=== PATIENT | female | born 1960 | race Hispanic/Latino ===

== ENCOUNTER → 2020-08-03 | Outpatient (CLI) | payer OTHER ==
[~2020-08-03] MED LIST: IOPAMIDOL 370 MG/ML 200 ML INFUS..BTL INJ ONE; SODIUM CHLORIDE 0.9% 250ML 250 ML ONE
[2020-08-03 14:35] LABS: BLOOD UREA NITROGEN 12 mg/dL (7-26); BUN/CREATININE RATIO 15 (6-25); CREATININE, SERUM 0.82 mg/dL (0.57-1.11); EST GLOMERULAR FILTRATION RATE > 60 ML/MIN (60-)
--- NOTE | 2020-08-03 16:00 | Diagnostic Imaging Report ---
CT of the abdomen and pelvis with and without contrast TECHNIQUE: CT of the abdomen and pelvis WITHOUT and WITH intravenous contrast and WITHOUT oral contrast. Dose modulation, iterative reconstruction, and/or weight-based adjustment of the mA/kV was utilized to reduce the radiation dose to as low as reasonably achievable. IV CONTRAST: 100 mL of Isovue-370 ORAL CONTRAST: None RADIATION DOSE: Total DLP: 1248 mGy*cm COMPLICATIONS: None INDICATION: ^[id number] ^1500 ^MICROSCOPIC HEMATURIA. COMPARISON: None. FINDINGS: LOWER THORAX: Dependent subsegmental atelectasis and scarring are noted. HEPATOBILIARY: No focal suspicious hepatic lesions. Hypodense cyst is identified in the posterior right hepatic lobe measuring up to 2.8 cm. Gallbladder is unremarkable. No biliary ductal dilatation. SPLEEN: No splenomegaly. PANCREAS: No focal masses or ductal dilatation. ADRENALS: No adrenal nodules. KIDNEYS/URETERS: Severe right hydronephrosis is noted along with proximal ureteral dilatation. There is focal transition from a dilated right ureter to nondilated right ureter approximately. Remainder of the right ureters not dilated. Negative for left hydronephrosis. No suspicious enhancing mass. No surrounding inflammatory changes are noted. Negative for nephrolithiasis. PELVIC ORGANS/BLADDER: Urinary bladder is unremarkable. Uterus contains a fibroid posteriorly. Ovaries are unremarkable by CT technique. PERITONEUM/RETROPERITONEUM: No free air or fluid. LYMPH NODES: No lymphadenopathy. VESSELS: Negative for abdominal aortic aneurysm. GI TRACT: Bowel loops are nondilated. No surrounding inflammatory changes are identified. Normal appendix is noted. BONES AND SOFT TISSUES: No acute osseous abnormality. No suspicious lytic or blastic lesion is identified. Moderate facet arthropathy of the lower lumbar spine is noted. Grade 1 anterolisthesis of L5 on S1 is noted. Negative for pars defect. Soft tissues are unremarkable. IMPRESSION: Severe right hydronephrosis and pelvis dilatation with abrupt transition at the level of the proximal ureter possibly the ureteropelvic junction. No obstructing calculus or mass is identified. Signed by: Willy King MD on 08/03/2020 3:57 PM
== END ==
LOC: CT 13:46
PROVIDERS: ATTEND Urology
DX: R31.21 Asymptomatic microscopic hematuria (principal)
CPT/HCPCS: 36415; 74178; 82565; 84520; J7050; Q9967

== ENCOUNTER → 2020-08-23 | Outpatient (CLI) | payer OTHER ==
[~2020-08-23] MED LIST changes: +FUROSEMIDE INJ 10 MG/ML 4 ML VIAL ONE; -IOPAMIDOL 370 MG/ML 200 ML INFUS..BTL INJ ONE; -SODIUM CHLORIDE 0.9% 250ML 250 ML ONE
--- NOTE | 2020-08-24 15:53 | Diagnostic Imaging Report ---
Renal Scan with Lasix Washout Reason for exam: Hydronephrosis, unspecified Technique: Following intravenous administration of 11 mCi of Tc-99m MAG3, dynamic images of the kidneys in the posterior projection were obtained through 40 minutes. Lasix 40 mg was administered intravenously at 10 minutes post injection of the tracer. Report: Left kidney: Perfusion of the left kidney is prompt. The kidney has a reniform shape. Extraction of tracer from the blood pool by the renal parenchyma is normal. Clearance of tracer from the renal parenchyma is prompt. The pelvicalyceal system is not dilated. Physiologic pooling of tracer is seen within the pelvicalyceal system. Drainage of tracer from the pelvicalyceal system is prompt and adequate prior to administration of Lasix. No significant stasis of tracer is seen within the left ureter. Right kidney: Perfusion to the right kidney is prompt. The right kidney has a slender, mildly elongated reniform shape. 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 Extraction of tracer by the renal parenchyma is mildly decreased. Clearance of tracer from the renal parenchyma is prompt. The pelvicalyceal system is mildly dilated, most prominently the renal pelvis. Increased pooling of tracer is seen within renal pelvis. Some net drainage of tracer from the pelvicalyceal system is seen prior to administration of Lasix. Washout of tracer from the pelvicalyceal system following administration of Lasix is prolonged with a T-1/2 of 35 minutes (normal less than 15 minutes). No significant stasis of tracer is seen within the right ureter. Differential renal function: The left kidney contributes 43% of total renal function and the right kidney contributes 57% (normal 43-57%). Impression: 1. Cannot exclude mild medical renal disease in the left kidney. No hydronephrosis is present. No physiologically significant obstruction of the renal collecting system is present. 2. The right kidney is malrotated. Cannot exclude mild medical renal disease in the right kidney. Mild hydronephrosis is present. Physiologically significant obstruction of the renal collecting system is suspected based on the prolonged T-1/2 of 35 minutes for Lasix washout of the right renal pelvis. 3. The differential renal function is preserved at the outer limits of normal. Visually, the differential function appears closer to 50% in each kidney. Signed by: Dr. Adriana Bernal M.D. on 08/24/2020 3:50 PM
== END ==
LOC: NM 11:02
PROVIDERS: ATTEND Urology
DX: N13.30 Unspecified hydronephrosis (principal)
CPT/HCPCS: 78708; A9562; J1940